=== PATIENT | male | born 1995 | race Caucasian/White ===

== ENCOUNTER 2021-08-15 14:10 | Emergency (ER) | payer BC, MEDICAID ==
[~2021-08-15] VITALS: Ht 172.7 cm; Wt 72.6 kg
--- NOTE | 2021-08-15 14:15 | NUR ---
Patient ambulatory, alert and orientedx4 complaints of sore throat 2 days ago. Vitals stable.
--- NOTE | 2021-08-15 14:18 | NUR ---
MD at bedside, medical screening exam in process.
[2021-08-15] MEDS ORDERED: AMOX500C2 PO (14:35)
[2021-08-15] MEDS ORDERED: AMOXicillin 250 MG CAPSULE ONE (14:44)
[2021-08-15] MEDS ORDERED: predniSONE 10 MG TABLET ONE (14:44)
[2021-08-15] MEDS ORDERED: predniSONE 50 MG TABLET ONE (14:44)
[2021-08-15] MEDS ORDERED: AMOXicillin 250 MG CAPSULE PO ONE (14:45)
[2021-08-15] MEDS ORDERED: predniSONE 20 MG TABLET PO ONE (14:45)
[2021-08-15 14:47] VITALS: BP 125/70
--- NOTE | 2021-08-15 14:47 | NUR ---
Patient discharged to home in stable condition. Written and verbal after care instructions given. Patient verbalizes understanding of instructions. Stressed follow up or return to ER for worsening s/s.
== END 2021-08-15 14:48 | disposition home or self-care (01) ==
LOC: ER 14:10
DX: J02.0 Streptococcal pharyngitis (principal); R01.1 Cardiac murmur, unspecified
CPT/HCPCS: 99283; J7512 ×2; A4663

== ENCOUNTER 2021-08-29 10:39 | Emergency (ER) | payer MEDICAID ==
[~2021-08-29] VITALS: Ht 172.7 cm; Wt 72.6 kg
[~2021-08-29 10:39] MED LIST: AMOX500C2 PO
--- NOTE | 2021-08-29 10:54 | NUR ---
Dr Arreola at the bedside for MSE.
[2021-08-29] MEDS ORDERED: IBUP-1955 PO (11:29)
[2021-08-29 11:32] VITALS: BP 120/71
== END 2021-08-29 11:33 | disposition home or self-care (01) ==
LOC: ER 10:39
DX: K12.0 Recurrent oral aphthae (principal); J02.9 Acute pharyngitis, unspecified; R01.1 Cardiac murmur, unspecified
CPT/HCPCS: 86403; 87070; A4663

== ENCOUNTER 2022-06-22 19:41 | Emergency (ER) | payer OTHER ==
[~2022-06-22] VITALS: Ht 165.1 cm; Wt 74.8 kg
[~2022-06-22 19:41] MED LIST changes: +IBUP-1955 PO
--- NOTE | 2022-06-22 20:02 | NUR ---
Patient ambulated to room #2 with family member with c/o sore throat. informed of plan of care, assisted into [facility] at bedside for exam. No s/s of any distress noted, swab collected, will continue to monitor.
[2022-06-22] MEDS ORDERED: ONDA4TAB5 PO (20:09)
[2022-06-22] MEDS ORDERED: HYDR-4209 PO (20:09)
[2022-06-22] MEDS ORDERED: ONDANSETRON ODT 4 MG TAB.RAPDIS ONE (20:12)
[2022-06-22] MEDS ORDERED: HYDROCODONE/APAP 5-325MG TABLET ONE (20:13)
[2022-06-22] MEDS ORDERED: HYDROCODONE/APAP 10-325 MG TABLET ONE (20:14)
[2022-06-22] MEDS ORDERED: ONDANSETRON ODT 4 MG TAB.RAPDIS SL ONE (20:15)
[2022-06-22] MEDS ORDERED: HYDROCODONE/APAP 10-325 MG TABLET PO ONE (20:15)
--- NOTE | 2022-06-22 20:18 | NUR ---
Medicated for pain as per order, awaiting lab results.
--- NOTE | 2022-06-22 20:57 | NUR ---
Patient resting in bed, no change in primary assessment.
--- NOTE | 2022-06-22 21:11 | NUR ---
MD at bedside talking to patient, okay for discharge home, ACI given states understanding and remains stable for discharge.
[2022-06-22 21:18] VITALS: BP 120/67
== END 2022-06-22 21:19 | disposition home or self-care (01) ==
LOC: ER 19:50
DX: J02.9 Acute pharyngitis, unspecified (principal); F17.290 Nicotine dependence, other tobacco product, uncomplicated
CPT/HCPCS: 86403; A4663; Q0162